=== PATIENT | male | born 1935 | race Caucasian/White ===

== ENCOUNTER 2017-04-15 13:58 | Inpatient (IN) | payer MEDICARE, BC ==
--- NOTE | ~2017-04-15 | DS ---
Unit #: [id number] #: [id number] Patient: ROSELINE PADILLA [id number] [address] [address] [id number] I MR#: [id number] NAME: ROSELINE PADILLA ROOM: 217 Age: 81 Sex: M Admission Date: 04/15/2017 : 1935 Discharge Date: 04/20/2017 Attending Physician: Robb Cohn M.D. Primary Care Physician: Dillon Lucas M.D. DISCHARGE SUMMARY PRINCIPAL DIAGNOSES 1. Toxic metabolic encephalopathy, now resolved. 2. Traumatic hemarthrosis of left knee after fall. 3. Acute urinary retention, now maintained on Flomax. 4. Chronic kidney disease stage 4, with baseline creatinine of approximately 2.4. 5. Khzza-jo-vhfjlzf physical deconditioning. 6. Chronic systolic congestive heart failure with ejection fraction of 30%-35%. No acute exacerbation. 7. Reactive leukocytosis. 8. Coronary artery disease. 9. Newly diagnosed diabetes mellitus type 2 with hemoglobin A1c of 8.0. 10. Severe aortic regurgitation. 11. Hypothyroidism. 12. Hyperlipidemia. CONSULTANTS Dr. Landeros, neurology. Dr. Tai, nephrology. DIAGNOSTIC DATA IMAGING: Chest x-ray on 04/15/2017 with atelectasis in the bases. Trace bilateral pleural effusions noted. X-ray of left ankle on 04/15/2017 with osteopenia. No acute findings. X-ray of left tibia and fibula on 04/15/2017 with osteopenia and atherosclerotic disease and osteoarthritis. Again, no acute fracture. X-ray of left knee on 04/15/2017 with osteoarthritis and osteopenia, atherosclerotic disease noted. There are curvilinear tendencies in the medial femoral condyle which may reflect hairline fracture. CT of the left lower extremity without contrast on 04/16/2017 with a small complex knee effusion, suggestive of hemarthrosis. No evidence of fracture. Mild to moderate tricompartment osteoarthritis noted. CT of the head without contrast on 04/15/2017 without any acute findings. There is moderate chronic ischemic changes in the deep white matter bilaterally, mild generalized cerebral cortical atrophy. X-ray of the left hip on 04/15/2017 with bilateral hip osteoarthritis. No fracture. Unit #: [id number] #: [id number] Patient: ROSELINE PADILLA MRA of the neck without contrast on 04/16/2017 with no flow limiting stenosis. Left vertebral artery is hypoplastic. MRI of the brain without contrast on 04/16/2017 with scattered multiple hyperintense T2 signal lesions in the brain, particularly in the supratentorial white matter and in the fritz. These are suggestive of microvascular ischemic change. No other acute findings. CLINICAL HISTORY/HOSPITAL COURSE Mr. Padilla is an 81-year-old male who presented to the emergency department with left-sided weakness after a fall at home. He was also confused. Please refer to history and physical for further details. He was subsequently brought to the emergency department for evaluation. The patient underwent multiple imaging studies of the left leg which did not reveal any fracture, though the patient did have a left knee hemarthrosis. He was also found to be confused and was subsequently admitted to the hospital for evaluation. Neurology was consulted, given the patient's confusion. MRA of the neck and MRI of the brain were done and revealed chronic vascular disease, but no other acute findings consistent with stroke. Given that he did have some significant atherosclerosis, the patient has been changed from aspirin to Plavix, given his high risk for stroke. He has tolerated Plavix therapy well. However, it is felt that his confusion was just likely a toxic metabolic phenomenon after the fall that has resolved. However, I will note during hospitalization the patient was taken off telemetry at one point and moved to medical/surgical and did become a little more confused at that time. I suspect he has a little bit of underlying memory loss given a little bit of agitation in conjunction with the move. This can be followed up as an outpatient. In regard to the patient's hemarthrosis of the knee, this improved with just supportive care during hospitalization. The patient was seen by physical therapy, who suggested inpatient subacute rehab, which we are currently in the process of arranging. The patient does have significant underlying chronic kidney disease. He was actually at his prepress proofer's office when he had these complaints and was sent to the emergency room. The patient was seen in consultation, but his renal function has remained at his baseline. He did have some significant urinary retention, for which he was placed on Flomax and Sexton catheter was placed for a short period. However, he has been able to urinate after Sexton catheter was removed. The patient will be discharged to rehab later today. Please note, the patient was also found to be hyperglycemic and hemoglobin A1c was elevated at 8. He has been started on Januvia and has been consulted regarding diabetic diet and on the day of discharge sugars are now running in the 150s or so. This can be followed up by his primary care physician after discharge. The patient was also found to be mildly anemic and this is a combination of both iron deficiency and his chronic kidney disease. He has been placed on iron supplementation. Hemoglobin on discharge is stable at 9.7. DISCHARGE CONDITION Unit #: [id number] #: [id number] Patient: ROSELINE PADILLA Stable. DISPOSITION Discharge to rehab. DISCHARGE MEDICATIONS 1. Flomax 0.4 mg at bedtime. 2. Januvia 25 mg daily. 3. Coreg 25 mg b.i.d. 4. Colace 100 mg daily. 5. Lasix 40 mg b.i.d. 6. Lipitor 20 mg at bedtime. 7. Hydralazine 25 mg b.i.d. 8. Ferrous gluconate 324 mg daily. 9. Plavix 75 mg daily. 10. Potassium chloride ER 10 mEq b.i.d. 11. Levothyroxine 25 mcg p.o. daily. 12. Imdur ER 60 mg daily. 13. Nitroglycerin 0.4 mg sublingual q.5 minutes p.r.n. chest pain. 14. Ergocalciferol 50,000 units p.o. weekly. DISCHARGE INSTRUCTIONS 1. The patient was instructed to follow a heart healthy, constant carb diet. He will obtain Accu-Cheks morning and evening. If these are stable throughout the rehab stay, perhaps they can be discontinued. 2. He can increase his activity as tolerated under the care of physical therapy and occupational therapy. FOLLOWUP 1. The patient will follow up with Dr. Dillon Lucas upon discharge from rehab. 2. The patient has a follow-up appointment with Dr. Meeks, his primary prepress proofer, which he will keep as previously scheduled. 3. Upon followup with his primary care physician, he will need to have arranged glucometer, test strips and lancets. I will also note the patient's Flomax, Januvia, ferrous gluconate and Plavix are all new medications and they will require prescription upon discharge from rehab. Dictated by... Ashley Harrington M.D. VAMSI/gaston TD: 04/20/2017 08:40 JOB #: [id number] Unit #: [id number] #: [id number] Patient: ROSELINE PADILLA DISCHARGE SUMMARY Page 1 of 1 X Ashley Harrington MD X DISCHARGE SUMMARY
--- NOTE | ~2017-04-15 | A ---
[facility] Nutrition Therapy DATE: 04/17/17 Patient: ROSELINE PADILLA Physician: HO Address: [address] Room/Bed: [address] [place] [address], Zip: [place] [address] Admit Date: 04/15/17 Date of : 35 Height: 5 5 Weight: 105 47.7 NUTRITIONAL ASSESSMENT: REASON: Low BMI 81 yo male admitted for left sided weakness PMH: CKD, HTN, HLD, CHF, hypothyroid, VT, hernia repair, DM Anthropometrics: Ht: 5'5" Wt: 47.7 kg BMI: 17.5 IBW: 61.8 kg, 77% IBW Labs: Cl- 98 Gluc 133 BUN 60 Creat 2.8 Accuchecks 134-251 HgbA1C 8.0 GFR 20.2 Meds: furosmide, novolog, synthroid, NaCl I/O & Bowel function: 720/1036, last BM 04/17 Skin Integrity: Bruise BUE Small scab to right ear lobe Redness to coccyx Edema: 1+ left knee Estimated Nutrition Needs: Increased d/t low body weight Diet: 2 gram Na+/ 1800 cc fluid restriction Assessment: Chart reviewed, events noted. RD spoke with the pt and his three family members at bedside. Pt was in and out of sleep; therefore, family provided most of the pt's nutritional history. Pt's family reports that the pt was losing weight gradually over several months, and has actually gained ~4# recently. Pt family has been going to eat with him and encourage PO intake during meal times, and also providing him with Boost shakes. Pt's family also reports that he has consumed 100% of meals over the past [address] verified this with empty tray in room. RD provided high protein/ high calorie diet education taking the pt's fluid restriction and 2 gram Na+ restriction into consideration. RD suggested Glucerna supplements due to the pt's elevated HgbA1C and accuchecks. Pt's family was apparently unaware that the pt was diabetic, however, they are aware that it runs in the family. RD discussed this with the pt's RN, suggesting that this be clarified with the pt and his family. Pt's family thinks he will do well with Magic Cup and glucerna supplements. RD will order. Dx: Underweight RT advanced age, recent illness AEB BMI 17.5, 77% IBW. [facility] Nutrition Therapy DATE: 04/17/17 Patient: ROSELINE RANDY Physician: HO Address: [address] [place] [address] Room/Bed: 311-01 [facility], Zip: [place] [address] Admit Date: 04/15/17 Date of : 35 Height: 5 5 Weight: 105 47.7 Intervention: 1. Continue diet as ordered 2. Glucerna once daily 3. Magic Cup TID Monitoring, Evaluation and Goals: 1. Oral intake; tolerate >50% of meals and supplements 2. Improve labs; glucose, BUN, creat, electrolytes 3. Weight; prevent weight loss, promote gradual weight gain towards IBW 4. Skin; prevent breakdown Recommendations: 1. Continue diet as ordered with fluid restriction per MD. 2. Magic Cup TID with meals and Glucerna once daily for supplemental nutrition (both chocolate). 3. Appreciate staff and family encouraging adequate nutritional intake as needed. Pt is at mild-moderate nutritional risk. Respectfully, BRIAN BARNES, RD, LD [facility] cc: client file
--- NOTE | ~2017-04-15 | CR252 ---
[facility] A Service of [facility] RADIOLOGY TEXT RESULTS PATIENT: ROSELINE PADILLA LOCATION: [facility] 311-01 : 35 UNIT #: [id number] AGE: [address]: Mary Van MD SEX: M ORDER DR: [id number] [facility] [address] [place], [place] [address] [id number] I MR#: [id number] Acc #: [id number] NAME: ROSELINE PADILLA : 1935 SEX: M STUDY DATE/TIME: 04/15/2017 15:44 UNIT: CED ROOM: 23903 STUDY DESCRIPTION: CR Tibia and Fibula 2 Views Lt Attending Physician: aMry Van M.D. Ordering Physician: Noemí Castelan M.D. Primary Care Physician: Dillon Lucas M.D. MEDICAL IMAGING REPORT This report is preliminary unless electronic signature is present EXAM Left tib-fib, 04/15. INDICATIONS Lower leg pain after fall yesterday. FINDINGS AP and lateral views of the tibia and fibula were obtained. Patient is osteopenic. There is osteoarthritis in the knee. Scattered arterial calcifications noted in the soft tissues. No acute fractures are identified. IMPRESSION Osteopenia with atherosclerotic disease and osteoarthritis. No acute fracture. Dictated by... Ag Swanson Jr., M.D. THIS IS AN ELECTRONICALLY VERIFIED REPORT Ag Swanson Jr., M.D. at 04/16/2017 7:10 AM GLADYS/jose TD: 04/15/2017 20:48 JOB #: [id number] MEDICAL IMAGING REPORT Page 1 of 1 COPY
--- NOTE | ~2017-04-15 | CO ---
Unit #: [id number] #: [id number] Patient: ROSELINE PADILLA [id number] [facility] [address]. [place], [place] [address] [id number] I MR#: [id number] NAME: ROSELINE PADILLA ROOM: 311 Age: 81 Sex: M Admission Date: 04/15/2017 : 1935 Attending Physician: Robb Cohn M.D. Primary Care Physician: Dillon Lucas M.D. Consultation Date: 04/16/2017 CONSULTATION REPORT CONSULTING PHYSICIAN Dr. Mray Van. REASON FOR CONSULT Left-sided weakness. PATIENT IDENTIFICATION This is an 81-year-old ambidextrous male evaluated in room 311 at [facility]. SOURCE OF INFORMATION Obtained from the patient as well as the medical record. HISTORY OF PRESENT ILLNESS This is a very pleasant 81-year-old ambidextrous male with a past medical history of chronic kidney disease stage 4 per nephrology, hypertension, hyperlipidemia, CHF with unknown ejection fraction, hypothyroidism who presents to [facility] for evaluation of left-sided weakness. According to the medical record, the patient had some left-sided weakness on Thursday that resolved and then returned, has been persistent for the last couple of days. The patient is currently alert and oriented, but he is not the best historian. I am uncertain of how reliable he is as he cannot answer all questions with complete certainty but he states that he feels as though the symptoms have been persistent since Thursday. He apparently fell on Thursday or Thursday. He has been complaining of pain in his left knee, but he cannot tell me if the pain was present before or after the fall and before or after the weakness. He cannot tell me if the weakness presented after the fall or before the fall, so essentially I am uncertain as what came first. He apparently at some point had complained of possibly some arm weakness but he denies that. He complained specifically of leg weakness. Apparently, he had some confusion per the medical record according to family and had been complaining of some pain. The patient admits that he did feel confused this week, though he is currently oriented x3. He denies any dizziness or vertigo, any speech or swallowing difficulty. He denies any vision changes. He has no cranial nerve findings on exam. He has no ataxia. His left lower extremity is weak; however, whenever I go to lift his leg, as he is unable to lift his leg off the bed himself, he complains of severe pain in his knee. His knee is swollen compared to the right and there is some warmth there. He does not complain of pain with palpation of his knee, but he complains of severe pain in his knee when I lift his leg. I am unable to elicit any reflexes. Again, his upper extremities are equal in strength and intact. He has no cranial nerve findings or facial weakness on exam. He can name and identify and follow commands. Unit #: [id number] #: [id number] Patient: ROSELINE PADILLA He has no right/left confusion or finger agnosia. He had a head CT done in the ER without contrast on April 15, 2017 that is negative for any acute findings. There is moderate chronic ischemic changes in the deep white matter bilaterally and mild generalized cerebral cortical atrophy. Neurology is asked to further evaluate. Of note, he did have x-rays of the tibia and fibula, left knee, ankle, and hip. Osteoarthritis and osteopenia is noted, small joint effusion noted. Per radiology report on the AP view, curvilinear lucencies in the medial femoral condyle could reflect hairline fractures with followup CT recommended for further evaluation. He denies any exacerbating or alleviating factors otherwise, but he is a poor historian regarding his current illness. PAST MEDICAL HISTORY 1. Admission to [facility] two weeks ago for congestive heart failure. I do not have records for that. His ejection fraction is unknown. He was started on Lasix and potassium at that time and is apparently being followed by Dr. Candelario. 2. Chronic kidney disease stage 4 per nephrology, who saw the patient on this admission. They state his chronic kidney disease is essentially stable and unchanged. 3. Hypertension. 4. Hyperlipidemia. 5. Hypothyroidism. 6. Myocardial infarction in the past. The patient apparently refused cardiac catheterization. 7. Hernia repair. FAMILY HISTORY Noncontributory to the presenting condition, especially given his age of 81. SOCIAL HISTORY The patient denies tobacco use, alcohol use, or illicit drug use. He says he uses a cane to ambulate at baseline. He has significant family support. They take him to his doctor appointments and check on him daily. His nephew, Chirag Padilla, is bhgrt-wa-sqbeddeh. He is a DNR. ALLERGIES No known drug allergies. HOME MEDICATIONS 1. Levothyroxine. 2. Potassium. 3. Furosemide. 4. Aspirin. He does take a full dose daily. 5. Lipitor. 6. Coreg. 7. Hydralazine. 8. Ergocalciferol. 9. Isosorbide mononitrate. 10. Nitroglycerin p.r.n. REVIEW OF SYSTEMS A 14-point review of systems was attempted. Pertinent positives were as discussed above, otherwise negative. PHYSICAL EXAMINATION VITAL SIGNS: Temperature 98. He has been afebrile this admission. He Unit #: [id number] #: [id number] Patient: ROSELINE PADILLA did have one elevated temperature of 99.2 this morning. Pulse 76, respirations 20, blood pressure 142/63. His blood pressure on the ER on arrival was 121/75. Oxygen saturation 99% on room air. Height 5 feet 5 inches, weight 105 pounds, BMI 17. NEUROLOGIC: The patient is awake. He is alert. He is pleasant, but he is a poor historian. He is oriented to person, place, and time. He did have some difficulty with the year but was able to correct himself without assistance to 2016 very quickly. He was able to tell me it was April without difficulty; however, he had some difficulty with the day of the week. He stated that he believed it was either Thursday or Thursday. He has no speech difficulty. He can name, identify and follow simple commands. No right/left confusion. No finger agnosia. He is not aphasic or dysarthric. No apraxia. CRANIAL NERVES: He demonstrates full rojas of vision on exam. His eyes are conjugate without ptosis or nystagmus. Extraocular movements are intact. Sensation of the face and scalp is intact. Strength of muscles of facial expression are intact. Hearing is intact to finger rub as well as conversation. Tongue is midline. Unable to fully visualize uvula and palate with repeated exam. Head turning is unremarkable. Shoulder shrug is unremarkable. Neck is supple. MOTOR: In his upper extremities, he demonstrates decreased bulk and normal tone. His strength in his upper extremities are equal and intact. He is essentially 5/5 to 5-/5 but no focal findings. In his lower extremities, his right lower extremity is intact 5 to 5-/5. In the left lower extremity, however, he is unable to lift against gravity. He does have muscle contraction and he can wiggle his toes, but he is unable to lift proximally or distally off the bed. When I attempt to lift his leg with passive range of motion, he complains of severe pain in his left knee. He does have swelling of his left knee and it appears to be warm compared to the right. I am unable to elicit any reflexes. Toes are equivocal. SENSORY: Intact. COORDINATION: Unremarkable, unable to assess in the left lower extremity. DIAGNOSTIC STUDIES LABORATORY: Hemoglobin A1c 8. Troponin 0.05. Sodium 135, potassium 3.9, chloride 97, CO2 of 29, glucose 115, BUN 53, creatinine 2.9, estimated GFR 19.4, calcium 9.2. AST 14, ALT 10, alkaline phosphatase 70, total protein 7.3, albumin 3.5. Phosphorous 3.7, magnesium 2.2. CK 29. White blood cell count 12, hemoglobin 10.5, hematocrit 31.7, platelet count 231,000. Initial troponin was less than 0.05, repeat troponin was 0.05. BNP 320. B12 of 481. Folate 7.6. TSH 3.37. Urinalysis: One plus protein, negative for bacteria. Initial white count 10.4. IMAGING: CT of the head: Please see above. Other imaging has been reviewed and is as per chart. He had a chest x-ray that shows mild infiltrate or atelectasis in the bases with trace bilateral effusions per radiology report. IMPRESSION Left lower extremity weakness and confusion: Rule out GARY lesion. Question is did his pain occur before the weakness or after the weakness. He certainly has had persistent weakness, so it would not be consistent with a transient ischemic attack. Will request a MRI of the brain without contrast, MRA of the head and neck to further evaluate. If positive for anything, we will further evaluate. If negative, we will observe. He does not exhibit any cranial nerve findings at this time. He certainly Unit #: [id number] #: [id number] Patient: ROSELINE PADILLA has left lower extremity weakness, but I am unable to determine if it is more pain related. He is certainly weak, but he exhibits significant pain with examination. He is unable to tell me if the weakness is more related to pain or not. Therefore, a MRI of the brain is certainly warranted. Will continue his home aspirin and Lipitor and further recommendations will be made pending workup and further clinical course. He certainly has risk factors. He is not a candidate for acute intervention and his symptoms have been going on for a few days at this point. Will follow along with you closely. Will discuss with Dr. Landeros for further recommendations as well as pending workup and further clinical course. We will follow along with you. We thank you very much for allowing us to assist in the care of this patient. Dictated by... Madonna Chairez A.P.R.N. for Carlos Barrera/jose TD: 04/16/2017 11:23 JOB #: [id number] CONSULTATION REPORT Page 1 of 1 X Madonna Chairez FUNCTIONAL CONSULTANT X CONSULTATION REPORT
--- NOTE | ~2017-04-15 | CT71 ---
[facility] A Service of [facility] RADIOLOGY TEXT RESULTS PATIENT: ROSELINE PADLILA LOCATION: [facility] 311- : 35 UNIT #: [id number] AGE: [address]: Robb Cohn MD SEX: M ORDER DR: [id number] [facility] [address] [facility]. [place], [place] [address] [id number] I MR#: [id number] Acc #: [id number] NAME: ROSELINE PADILLA : 1935 SEX: M STUDY DATE/TIME: 04/15/2017 16:31 UNIT: CEDOF ROOM: 94550 STUDY DESCRIPTION: CT Head Wo Contrast Attending Physician: Mary Van M.D. Ordering Physician: Noemí Castelan M.D. Primary Care Physician: Dillon Lucas M.D. MEDICAL IMAGING REPORT This report is preliminary unless electronic signature is present EXAM CT brain without contrast HISTORY Left side weakness for 2 days. Left side weakness for [address] exam was performed with one or more of the following radiation dose reduction techniques: automatic exposure control, adjustment of mA and/or kV according to patient size, and iterative reconstruction. FINDINGS CT brain without contrast demonstrates no intracranial hemorrhage, mass or edema. No midline shift or ventricular dilatation. Moderate chronic ischemic changes in the deep white matter bilaterally and mild generalized cerebral cortical atrophy. IMPRESSION No acute findings. Dictated by... Matthew Gallagher M.D. THIS IS AN ELECTRONICALLY VERIFIED REPORT Matthew Gallagher M.D. at 04/16/2017 1:59 PM DFL/pcl TD: 04/15/2017 21:57 JOB #: [id number] MEDICAL IMAGING REPORT [facility] A Service [facility] RADIOLOGY TEXT RESULTS PATIENT: ROSELINE PADILLA LOCATION: [facility] 311- : 35 UNIT #: [id number] AGE: [address]: Robb Cohn MD SEX: M ORDER DR: Page 1 of 1 COPY
--- NOTE | ~2017-04-15 | MR134 ---
[facility] A Service of [facility] & [facility] RADIOLOGY TEXT RESULTS PATIENT: ROSELINE PADILLA LOCATION: C2A 217-01 : 35 UNIT #: [id number] AGE: [address]: Robb Cohn MD SEX: M ORDER DR: [id number] [facility] [address] [employer], [place] [address] [id number] I MR#: [id number] Acc #: [id number] NAME: ROSELINE PADILLA : 1935 SEX: M STUDY DATE/TIME: 04/16/2017 14:21 UNIT: C3A PCU ROOM: [facility] STUDY DESCRIPTION: MR MRA Neck Wo Contrast Attending Physician: Robb Cohn M.D. Ordering Physician: Sylvain Landeros M.D. Primary Care Physician: Dillon Lucas M.D. MRI CENTER REPORT This report is preliminary unless electronic signature is present. EXAM MR angiogram of the neck without contrast, dated 04/16/2017. COMPARISON MR angiogram brain dated 04/16/2017. MRI brain is yet to be obtained. HISTORY Left-sided weakness since Thursday04/15/2017 at 1400 hours. Patient fell that day at home with possible injury to the left leg. Patient became dizzy and confused after fall. FINDINGS Source and 3-D reconstruction MIP images of the neck arteries were obtained without contrast. The visualized bilateral common, internal and external carotid arteries demonstrate expected flow course and caliber without any hemodynamically flow-limiting significant stenosis and bilateral internal carotid artery bulbs per NASCET criteria. Bilateral external and common carotid arteries are grossly unremarkable. The left vertebral artery either arises directly from the arch between the left common and left subclavian artery or from the left subclavian artery immediately after its origin from the arch. Motion artifact in this region limits evaluation. Left vertebral artery is hypoplastic, and it has a slightly longer course before it extends to the cervical transverse foramen on the left. Bilateral vertebral arteries demonstrate expected caliber without any superimposed stenosis. The left vertebral artery appears to terminate in the left PICA intracranially without any significant contribution to the basilar arterial flow. No dissection, aneurysm or AVM in the major neck arteries. IMPRESSION 1. No hemodynamically flow-limiting significant stenosis and bilateral internal carotid artery bulbs per NASCET criteria. 2. The left vertebral artery is hypoplastic and it appears to terminate STS. [facility] A Service of [facility] & [facility] RADIOLOGY TEXT RESULTS PATIENT: ROSELINE PADILLA LOCATION: A 217- : 35 UNIT #: [id number] AGE: [address]: Robb Cohn MD SEX: M ORDER DR: in the left PICA intracranially, without any significant contribution to the basilar arterial flow. Dictated by... Art Peralta M.D. THIS IS AN ELECTRONICALLY VERIFIED REPORT Art Peralta M.D. at 04/22/2017 11:32 AM CPR/jt TD: 04/16/2017 16:50 JOB #: [id number] MRI CENTER REPORT Page 1 of 1 COPY
--- NOTE | ~2017-04-15 | CT92 ---
[facility] A Service of [facility] & [facility] RADIOLOGY TEXT RESULTS PATIENT: ROSELINE APDILLA LOCATION: [facility] 311- : 35 UNIT #: [id number] AGE: [address]: Robb Cohn MD SEX: M ORDER DR: [id number] [facility] [address] [place], [place] [address] [id number] I MR#: [id number] Acc #: [id number] NAME: ROSELINE PADILLA : 1935 SEX: M STUDY DATE/TIME: 04/16/2017 7:49 [facility] ROOM: [facility] STUDY DESCRIPTION: CT Lower Ext Lt Wo Cont Attending Physician: Robb Cohn M.D. Ordering Physician: Mary Van M.D. Primary Care Physician: Dillon Lucas M.D. MEDICAL IMAGING REPORT This report is preliminary unless electronic signature is present EXAM CT left knee HISTORY 81-year-old male fell April 14. Complains of left knee pain. X-rays inconclusive for fracture. COMPARISON Left knee films 04/15/2017. FINDINGS Thin section axial images performed through the left knee with multiplanar reconstructed images reviewed at a workstation. This CT examination was performed with one or more of the following radiation dose reduction techniques: automatic exposure control, adjustment of mA and/or kV according to patient size, and iterative reconstruction. Exam demonstrates marked osteopenia. No convincing evidence of fracture. Small knee effusion. There is a questionable fluid-fluid level within the effusion which could indicate a hemarthrosis but again a distinct fracture line is not identified. There is gnfo-un-lvrututa tricompartment osteoarthritis with a small amount of chondrocalcinosis. No erosive change is identified. Prominent enthesopathic cyst noted within the tibial eminence. Small amount of fluid distends the GS bursa. IMPRESSION 1. Small complex knee effusion with a fluid-fluid level suggesting hemarthrosis. 2. No convincing evidence of fracture about the knee. Sensitivity diminished due to patient's severe osteopenia but clearly no distinct fracture line is seen. 3. Aavp-fs-nkaljdsg tricompartment osteoarthritis. [facility] A Service of [facility] & [facility] RADIOLOGY TEXT RESULTS PATIENT: ROSELINE PADILLA LOCATION: [facility] 311-01 : 35 UNIT #: [id number] AGE: [address]: Robb Cohn MD SEX: M ORDER DR: Dictated by... Carlos Barker M.D. THIS IS AN ELECTRONICALLY VERIFIED REPORT Carlos Barker M.D. at 04/17/2017 7:26 AM DEMI/lon TD: 04/16/2017 12:54 JOB #: [id number] MEDICAL IMAGING REPORT Page 1 of 1 COPY
--- NOTE | ~2017-04-15 | CR150 ---
[facility] A Service of [facility] & [facility] RADIOLOGY TEXT RESULTS PATIENT: ROSELINE PADILLA LOCATION: [facility] 311-01 : 35 UNIT #: [id number] AGE: [address]: Mary aVn MD SEX: M ORDER DR: [id number] [facility] [address] [place], [place] [address] [id number] I MR#: [id number] Acc #: [id number] NAME: ROSELINE PADILLA : 1935 SEX: M STUDY DATE/TIME: 04/15/2017 15:49 UNIT: CEDOF ROOM: [id number] STUDY DESCRIPTION: CR Hip Min 2 Views Lt Attending Physician: Mary Van M.D. Ordering Physician: Noemí Castelan M.D. Primary Care Physician: Dillon Lucas M.D. MEDICAL IMAGING REPORT This report is preliminary unless electronic signature is present EXAM Left hip and pelvis, 04/15 INDICATIONS Hip pain after fall yesterday. FINDINGS AP pelvis was obtained in addition to a frog-leg left hip. There is bilateral hip osteoarthritis with some mild spurring and joint space narrowing. No acute fractures are identified. IMPRESSION Bilateral hip osteoarthritis. No acute fracture. Dictated by... Ag Swanson Jr., M.D. THIS IS AN ELECTRONICALLY VERIFIED REPORT Ag Swanson Jr., M.D. at 04/16/2017 7:10 AM GLADYS/sinan TD: 04/15/2017 21:01 JOB #: [id number] MEDICAL IMAGING REPORT Page 1 of 1 COPY
--- NOTE | ~2017-04-15 | CO ---
Unit #: [id number] #: [id number] Patient: ROSELINE PADILLA [id number] [address] [place], [place] [address] [id number] I MR#: [id number] NAME: ROSELINE PADILLA ROOM: 311 Age: 81 Sex: M Admission Date: 04/15/2017 : 1935 Attending Physician: Robb Cohn M.D. Primary Care Physician: Dillon Lucas M.D. Consultation Date: 04/16/2017 CONSULTATION REPORT REASON FOR CONSULTATION Known chronic kidney disease. HISTORY OF PRESENT ILLNESS Ms. Padilla is a very pleasant 81-year-old gentleman who is a poor historian, who was admitted due to ongoing left-sided weakness, especially in his left leg. Patient was just recently discharged from [facility] for congestive heart failure issues. This discharge summary was reviewed. Patient was seeing my partners, Dr. Meeks and Dr. Medina there and looked to have fairly stable kidney function while there with creatinines running in the mid to high 2 range with diuresis. We were asked to follow here for his chronic kidney disease. Patient denies any chest discomfort or shortness of breath this morning while lying flat. He does have a Sexton catheter in place with nonbloody urine. There is no swelling issues. No nausea or vomiting reported. Admission creatinine was 3.1. Again he is a poor historian. PAST MEDICAL HISTORY Significant for congestive heart failure, systolic in nature, chronic kidney disease stage 4, hypertension, hyperlipidemia, hypothyroidism, previous [place]. PAST SURGICAL HISTORY Hernia repair. HOME MEDICATIONS Nitroglycerin p.r.n.; Imdur 60 mg a day; vitamin D 50,000 units weekly; hydralazine 25 mg twice a day; Coreg 25 mg twice a day; Lipitor 40 mg a day; aspirin daily; furosemide 40 mg twice a day; potassium 10 mEq twice a day; levothyroxine 25 mcg a day. ALLERGIES No known drug allergies. FAMILY HISTORY Unknown but likely noncontributory. SOCIAL HISTORY There is no history of active tobacco or alcohol abuse. No drug use. He is a DNR and has supportive family that checks in on him. REVIEW OF SYSTEMS A complete twelve point review of systems was attempted but again was made difficult secondary to his seemingly mild confusion. He denies any Unit #: [id number] #: [id number] Patient: ROSELINE PADILLA headaches or dizziness. No fevers or chills. No nosebleed or sore throat. No earache. No chest pain. No palpitations. No hemoptysis. No bright red blood per rectum or melena. No rashes. No itching. No flank pain. No night sweats or hot flashes. No intolerance to heat or cold. Denies any gross bleeding issues. Likely has lost weight with his recent diuresis. Unless otherwise indicated the review of systems was negative. PHYSICAL EXAMINATION VITAL SIGNS: Patient is afebrile. As of this morning temp is 98, pulse 76, respiratory rate 20, blood pressure 142/63. GENERAL: This is an 81-year-old male lying in bed in no acute distress. HEENT: Head is atraumatic and normocephalic. Eyes show pink conjunctivae with no scleral icterus. No nasal drainage or nosebleed. Oropharynx is moist and no thrush. NECK: Shows no rigidity. HEART: Regular rate and rhythm with soft murmur present. No gallop or rub appreciated. LUNGS: Clear anteriorly with no wheezing or rhonchi. Breathing is nonlabored. ABDOMEN: Soft, nontender. Bowel sounds are present. EXTREMITIES: No lower extremity cyanosis or pitting edema. SKIN: Dry without rashes. GENITOURINARY: Sexton catheter is in place with nonbloody urine. MUSCULOSKELETAL: No CVA tenderness to palpation. NEUROLOGIC: Patient has difficulty raising his left leg off the bed but is able to do so about an inch or so. LYMPHATIC: There is no neck or cervical lymphadenopathy. DIAGNOSTIC STUDIES LABS: Urine protein creatinine ratio was about 1 g. IMAGING STUDIES: Chest x-ray done yesterday afternoon did show some trace effusions. LABORATORY STUDIES: Hemoglobin A1c was 8. Troponin 0.05. Chemistry today - noteworthy for a potassium of 3.9, creatinine 2.9, phosphorus normal at 3.7, magnesium 2.2. White count 12,000, hemoglobin 10.5, platelet count 231. BNP on admission was 320. Urinalysis on admission showed 1+ protein and no blood. Admission creatinine was 3.1. No prior creatinines to compare here at [facility] but it looks like his creatinines while at [place] ran between the mid to high 2 range. ASSESSMENT AND PLAN 1. Acute on chronic kidney disease, stage 4. His admission creatinine of 3.1 is slightly above his baseline and is likely related to recent aggressive diuresis at [place] and higher doses of diuretics at home for his congestive heart failure. It is improved down to 2.9 today. Due to his congestive heart failure I do feel it is okay to resume his Lasix and will do so tonight. Certainly need to avoid any NSAIDs and IV contrasted studies while he is here at the hospital. 2. Congestive heart failure, which is systolic in nature. Patient looks fairly well compensated here this morning. Again we can continue his diuretic regimen and low salt diet. 3. Diabetes with proteinuria. 4. Left leg weakness with neurology seeing the patient and workup underway. 5. Anemia, which is mild in nature with no need for Procrit at this time. 6. Patient is noted to be a DNR. Unit #: [id number] #: [id number] Patient: ROSELINE PADILLA I would like to thank Dr. Van for this consult and the opportunity to participate in evaluation and care of Mr. Padilla. Dictated by... Mitch Tai Jr., MTeodoro. BHUMIKA/renee TD: 04/17/2017 06:13 JOB #: [id number] CONSULTATION REPORT Page 1 of 1 X Mitch Tai MD X CONSULTATION REPORT
--- NOTE | ~2017-04-15 | CR172 ---
[facility] A Service of [facility] & [facility] RADIOLOGY TEXT RESULTS PATIENT: ROSELINE PADILLA LOCATION: [facility] 311-01 : 35 UNIT #: [id number] AGE: [address]: Mary Van MD SEX: M ORDER DR: [id number] [facility] [address] [place], [place] [address] [id number] I MR#: [id number] Acc #: [id number] NAME: ROSELINE PADILLA : 1935 SEX: M STUDY DATE/TIME: 04/15/2017 15:47 UNIT: CEDOF ROOM: [id number] STUDY DESCRIPTION: CR Knee 3 Views Lt Attending Physician: Mary Van M.D. Ordering Physician: Noemí Castelan M.D. Primary Care Physician: Dillon Lucas M.D. MEDICAL IMAGING REPORT This report is preliminary unless electronic signature is present EXAM Left knee, 04/15 INDICATIONS Knee pain after fall yesterday. FINDINGS Three views of the left knee were obtained. Patient is osteopenic. Atherosclerotic calcifications are noted. There is tricompartmental osteoarthritis. There are some linear lucencies seen on the AP view involving the medial femoral condyle which could reflect nondisplaced fractures. A small joint effusion is present. Follow up with CT recommended. IMPRESSION Osteoarthritis and osteopenia with atherosclerotic disease. There is a small joint effusion. On the AP view, curvilinear lucencies in the medial femoral condyle could reflect hairline fractures. Follow up with a CT is recommended for further evaluation. Dictated by... Ag Swanson Jr., M.D. THIS IS AN ELECTRONICALLY VERIFIED REPORT Ag Swanson Jr., M.D. at 04/16/2017 7:10 AM GLADYS/sinan TD: 04/15/2017 20:59 JOB #: [id number] MEDICAL IMAGING REPORT Page 1 of 1 COPY
--- NOTE | ~2017-04-15 | EKG ---
PATIENT: ROSELINE PADILLA UNIT #: [id number] Ventricular Rate: 79 BPM Atrial Rate: 79 BPM P-R Interval: 166 ms QRS Duration: 84 ms Q-T Interval: 396 ms QTC Calculation(Bezet): 454 ms P [place]: 47 degrees Calculated R [place]: -41 degrees Calculated T [place]: 131 degrees Diagnosis Line: Normal sinus rhythm Diagnosis Line: Left axis deviation Diagnosis Line: Left ventricular hypertrophy with repolarization Diagnosis Line: abnormality Diagnosis Line: Anteroseptal infarct , age undetermined Diagnosis Line: Abnormal ECG Diagnosis Line: No previous ECGs available Diagnosis Line: Confirmed by MICHAEL ENRIQUEZ MD ([id number]) on Diagnosis Line: 04/17/2017 7:56:26 AM INTERPRETING MD: MINA HOLLINGSWORTH
--- NOTE | ~2017-04-15 | CR72 ---
[facility] A Service of [facility] & [facility] RADIOLOGY TEXT RESULTS PATIENT: ROSELINE PADILLA LOCATION: [facility] 311-01 : 35 UNIT #: [id number] AGE: [address]: Mary Van MD SEX: M ORDER DR: [id number] [facility] [address] [place], [place] [address] [id number] MR#: [id number] Acc #: [id number] NAME: ROSELINE PADILLA : 1935 SEX: M STUDY DATE/TIME: 04/15/2017 15:42 UNIT: BIRDIE ROOM: STUDY DESCRIPTION: CR Chest Single View Portable Attending Physician: Noemí Castelan M.D. Ordering Physician: Noemí Castelan M.D. Primary Care Physician: Dillon Lucas M.D. MEDICAL IMAGING REPORT This report is preliminary unless electronic signature is present EXAM Portable chest, 04/15 INDICATIONS Shortness of air that started yesterday. FINDINGS AP portable chest was obtained. No comparison. Cardiac and mediastinal contours are within normal limits. There is some mild infiltrate or atelectasis in the bases and there are trace pleural effusions. Lungs are otherwise clear. No pneumothorax. There is degenerative disease in both shoulders. IMPRESSION Mild infiltrate or atelectasis in the bases with trace bilateral effusions. Dictated by... Ag Swanson Jr., M.D. THIS IS AN ELECTRONICALLY VERIFIED REPORT Ag Swanson Jr., M.D. at 04/16/2017 7:10 AM GLADYS/sinan TD: 04/15/2017 20:34 JOB #: [id number] MEDICAL IMAGING REPORT Page 1 of 1 COPY
--- NOTE | ~2017-04-15 | HP ---
Unit #: [id number] #: [id number] Patient: ROSELINE PADILLA [id number] [address] [place], [place] [address] [id number] I MR#: [id number] NAME: ROSELINE PADILLA ROOM: 38208 Age: 81 Sex: M Admission Date: 04/15/2017 : 1935 Attending Physician: Mary Van M.D. Primary Care Physician: Dillon Lucas M.D. HISTORY AND PHYSICAL CHIEF COMPLAINT Left-sided weakness since Thursday. HISTORY OF PRESENT ILLNESS The patient is an 81-year-old male with a past medical history of chronic kidney disease, hypertension, hyperlipidemia, CHF, and hypothyroidism, who presented to the emergency department for evaluation of the above. History is obtained from chart review and discussion with ER staff, as well as from the patient and his nephew, Chirag Padilla. The patient was apparently in his usual state of health until the evening of April 11. He was noted to be somewhat confused and had left-sided weakness. He also complained of having difficulty moving his left arm and leg. He states that he could only move his leg if he "lifted it." He also felt somewhat off balance. The next day the symptoms completely resolved. The symptoms then returned yesterday. The timeline is somewhat unclear. Today, the family was taking him to an appointment with his mathematics lecturer and noticed that he seemed to be weak on the left side. He was complaining of pain intermittently. He seemed to be somewhat confused, and so they brought him to the emergency department. Upon arrival in the emergency department, initial temperature was 98.1, pulse 78, respirations 16, blood pressure 121/75, and oxygen saturation was 99% on room air. Multiple imaging studies were done including a CT of the head that was negative. Left knee x-ray showed a possible hairline fracture involving the medial femoral condyle. A CT was recommended. Laboratory notable for creatinine of 3.1 with no baseline for comparison. Blood sugar was 224. The patient denies any history of diabetes. He is being admitted to [facility] for evaluation and further treatment. PAST MEDICAL HISTORY 1. Admission to [facility] two weeks ago for congestive heart failure (no records). The patient was started on Lasix and potassium at that time. 2. Congestive heart failure with unknown ejection fraction, followed by Dr. Candelario. The patient saw his emery wheel worker last week in followup. 3. Hypertension. 4. Hyperlipidemia. 5. Hypothyroidism. 6. Chronic kidney disease unknown stage, followed by Dr. Meeks. 7. Myocardial infarction. The patient refused cardiac catheterization. Unit #: [id number] #: [id number] Patient: ROSELINE PADILLA PAST SURGICAL HISTORY Hernia repair. SOCIAL HISTORY The patient lives alone. There is no tobacco or alcohol use. He has a cane and a walker. Family checks on him frequently. His nephew, Chirag Padilla, is his closest living relative and is his power of anime designer. His code status is a Do Not Resuscitate. ALLERGIES No known allergies. HOME MEDICATIONS 1. Levothyroxine 25 mcg daily. 2. Potassium 10 mEq twice daily. 3. Furosemide 40 mg twice daily. 4. Aspirin 325 mg daily. 5. Lipitor 40 mg daily. 6. Coreg 25 mg twice daily. 7. Hydralazine 25 mg twice daily. 8. Ergocalciferol 50,000 units weekly. 9. Isosorbide mononitrate 60 mg daily. 10. Nitroglycerin 0.4 mg sublingual p.r.n. REVIEW OF SYSTEMS A complete review of systems is negative except as indicated in the History of Present Illness. PHYSICAL EXAMINATION VITAL SIGNS: Temperature is 98.1, pulse 78, respirations 16, blood pressure 121/75, and oxygen saturation is 99% on room air. GENERAL: Patient is a male who is awake, alert, and in no acute distress. HEENT: Head is atraumatic. Mucous membranes are moist. NECK: Supple. Trachea is midline. CARDIOVASCULAR: Regular rate and rhythm. LUNGS: Decreased breath sounds at the bases. Breathing is not labored with conversation. ABDOMEN: Soft and nontender with bowel sounds present in all four quadrants. EXTREMITIES: Nontender. Specifically, the left lower extremity is nontender in the region of the distal femur and knee. There is no pedal edema. NEUROLOGIC: Patient is awake and alert. He is oriented x3. There is no facial asymmetry. Tongue is midline. There is no appreciable pronator drift. Leather Production Worker strength is symmetric. Gait was not assessed. PSYCHIATRIC: Mood and affect are normal. Patient is cooperative. SKIN: Skin of examined areas is warm and dry. DIAGNOSTIC STUDIES LABORATORY: Comprehensive metabolic panel notable for glucose of 224 and BUN and creatinine 53 and 3.1, respectively. Complete blood count notable for hemoglobin and hematocrit of 10.7 and 32.7, respectively. Troponin is less than 0.05. Urinalysis notable for 1+ protein. IMAGING: Chest x-ray shows bibasilar atelectasis versus infiltrate with trace bilateral effusions. CT of the head shows nothing acute. Left hip x-ray shows nothing acute. Left knee x-ray shows a small effusion with Unit #: [id number] #: [id number] Patient: ROSELINE PADILLA possible hairline fracture involving the medial femoral condyle. Left tibia-fibula shows nothing acute. Left ankle x-ray nothing acute. CARDIOLOGY: EKG shows normal sinus rhythm with a rate of 79 beats per minute. ASSESSMENT The patient is an 81-year-old male with: 1. Altered mental status. 2. Left-sided weakness. The weakness has been intermittent in nature, first appearing on April 11 then resolving completely, then reappearing possibly last night. A CT of the head is negative. 3. Possible fracture involving the left femoral condyle. 4. Chronic kidney disease versus acute on chronic kidney disease. The patient's creatinine is 3.1 with no baseline for comparison. He is followed by Dr. Meeks. He is on Furosemide which could be contributing as well. 5. Hypertension. 6. Hyperlipidemia. 7. Congestive heart failure with unknown ejection fraction. 8. History of myocardial infarction. The patient refused cardiac catheterization. 9. Hyperglycemia with no history of diabetes. 10. Hypothyroidism. PLAN 1. Admit for observation to intermediate level. 2. Two gram sodium, 1800 mL fluid restricted, heart-healthy, consistent carbohydrate diet if passes bedside swallow. 3. TSH, B12, and folate. 4. Neuro checks. 5. Bedrest. 6. Fall precautions. 7. MRI of the brain without contrast for further evaluation of left-sided weakness. 8. Stroke protocol per Neurology. 9. Consult Neurology regarding left-sided weakness. 10. CT of the left knee without contrast for further evaluation of possible fracture noted on plain films. 11. Check BNP. 12. Serial cardiac enzymes. 13. Strict I/Os. 14. Daily weights. 15. Get records from [place]. 16. Low-dose sliding scale insulin with Accu-Cheks. 17. Hemoglobin A1c. 18. Consult Dr. Meeks regarding chronic kidney disease versus acute on chronic kidney disease. 19. Check CPK. 20. Bladder scan and check postvoid residual. 21. Hold Lasix pending further workup. 22. Regarding code status, the patient is a Do Not Resuscitate. 23. Additional workup and consultants based on above. 1. Dictated by Mary Van M.D. Unit #: [id number] #: [id number] Patient: ROSELINE PADILLA RAYMUNDO/paula TD: 04/15/2017 22:14 JOB #: [id number] HISTORY AND PHYSICAL Page 1 of 1 X Mary Van MD X HISTORY AND PHYSICAL
--- NOTE | ~2017-04-15 | MR18 ---
[facility] A Service of [facility] & [facility] RADIOLOGY TEXT RESULTS PATIENT: ROSELINE PADILLA LOCATION: A 217-01 : 35 UNIT #: [id number] AGE: [address]: Robb Cohn MD SEX: M ORDER DR: [id number] [facility] [address] [place], [place] [address] [id number] I MR#: [id number] #: [id number] NAME: ROSELINE PADILLA : 1935 SEX: M STUDY DATE/TIME: 04/16/2017 14:21 UNIT: C3A PCU ROOM: [facility] STUDY DESCRIPTION: MR Brain Wo Contrast Attending Physician: Robb Cohn M.D. Ordering Physician: Mary Van M.D. Primary Care Physician: Dillon Lucas M.D. MRI CENTER REPORT This report is preliminary unless electronic signature is present. EXAM MRI of the brain without contrast dated 04/16/2017. COMPARISON MR angiogram head without contrast dated 04/16/2017. HISTORY Left-sided weakness since Thursday on 04/15/2017 1400 hours. Patient fell that day at home with possible injury to the left leg. Patient became dizzy and confused after fall. FINDINGS Multisequence multiplanar imaging of the brain was obtained without contrast. No acute stroke, space-occupying intracranial mass, mass effect, midline shift or hydrocephalus. Scattered multiple patchy hyperintense T2-signal lesions are noted in the periventricular and subcortical white matter. To a lesser degree it is noted in the fritz with suspicious involvement of the right cerebellar hemisphere and bilateral basal ganglia. Diffuse age-appropriate parenchymal volume loss is seen. No acute intracranial abnormality. Thick slices through the sella with the pituitary gland, pineal region do not demonstrate any significant abnormality. Degenerative changes are in the cervical spine particularly at C4-5 and C5-6 based on sagittal T1 brain sequence. It is incompletely characterized. S-shaped nasal septal deviation is noted with relatively well aerated paranasal sinuses. Orbits with the ocular structures are unremarkable. Minimal bilateral mastoid mucosal thickening is seen. IMPRESSION 1. Scattered multiple hyperintense T2-signal lesions are noted in the brain particularly in the supratentorial white matter and in the fritz. These are suggestive of moderate chronic microvascular ischemic change, migraine or old lacunar infarcts based on age and STS. [facility] A Service of [facility] & [facility] RADIOLOGY TEXT RESULTS PATIENT: ROSELINE PADILLA LOCATION: [place] [address] : 35 UNIT #: [id number] AGE: [address]: Robb Cohn MD SEX: M ORDER DR: statistics. 2. No acute intracranial abnormality like acute stroke, hydrocephalus, acute hemorrhage or midline shift. Dictated by... Art Peralta M.D. THIS IS AN ELECTRONICALLY VERIFIED REPORT Art Peralta M.D. at 04/22/2017 11:32 AM PHILLIP/margie TD: 04/16/2017 17:36 JOB #: [id number] MRI CENTER REPORT Page 1 of 1 COPY
--- NOTE | ~2017-04-15 | CR20 ---
[facility] A Service of [facility] RADIOLOGY TEXT RESULTS PATIENT: ROSELINE PADILLA LOCATION: [facility] 311-01 : 35 UNIT #: [id number] AGE: [address]: Mary Van MD SEX: M ORDER DR: [id number] [facility] [address] [place], [place] [address] [id number] MR#: [id number] Acc #: [id number] NAME: ROSELINE PADILLA : 1935 SEX: M STUDY DATE/TIME: 04/15/2017 15:43 UNIT: CEDOF ROOM: [id number] STUDY DESCRIPTION: CR Ankle Min 3 Views Lt Attending Physician: Mary Van M.D. Ordering Physician: Noemí Castelan M.D. Primary Care Physician: Dillon Lucas M.D. MEDICAL IMAGING REPORT This report is preliminary unless electronic signature is present EXAM Left ankle 04/15 INDICATIONS Left ankle pain that started yesterday after fall. FINDINGS 3 views of the left ankle were obtained. Patient is osteopenic. Arterial calcifications present in the soft tissues. Plantar calcaneal spur is noted. There is a small spur along the superior margin of the anterior talus. No acute fracture or malalignment is seen. 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 No acute findings in the interval. Dictated by... Ag Swanson Jr., M.D. THIS IS AN ELECTRONICALLY VERIFIED REPORT Ag Swanson Jr., M.D. at 04/16/2017 7:10 AM GLADYS/troy TD: 04/15/2017 21:36 JOB #: [id number] MEDICAL IMAGING REPORT Page 1 of 1 COPY
--- NOTE | ~2017-04-15 | MR122 ---
[facility] A Service of [facility] & [facility] RADIOLOGY TEXT RESULTS PATIENT: ORSELINE PADILLA LOCATION: A 217-01 : 35 UNIT #: [id number] AGE: [address]: Robb Cohn MD SEX: M ORDER DR: [id number] [facility] [address] [place], [place] [address] [id number] I MR#: [id number] Acc #: [id number] NAME: ROSELINE PADILLA : 1935 SEX: M STUDY DATE/TIME: 04/16/2017 14:21 UNIT: C3A PCU ROOM: [facility] STUDY DESCRIPTION: MR MRA Head Wo Contrast Attending Physician: Robb Cohn M.D. Ordering Physician: Sylvain Landeros M.D. Primary Care Physician: Dillon Lucas M.D. MRI CENTER REPORT This report is preliminary unless electronic signature is present. EXAM MR angiogram of the head without contrast dated 04/16/2017. COMPARISON MRA neck without contrast dated 04/16/2017. CT head without contrast dated 04/15/2017. MRI brain without contrast is to be obtained subsequently. HISTORY Left-sided weakness since Thursday (04/15/2017). Patient fell that day at home with injury to the left leg. Patient was dizzy and confused after fall. FINDINGS Source and 3-D reconstruction MIP images of the [place] of [place] was obtained without contrast. The left internal carotid artery appears to be slightly smaller in caliber, particularly in the left petrous and portions of the left cavernous ICA. Bilateral anterior and middle cerebral arteries demonstrate mild irregularity in the lateral aspect of the M1 segment of the left MCA after the takeoff of the left anterior temporal artery branch, and near the left MCA trifurcation. No distal flow compromise is seen. There are a slightly lesser number of right sylvian and hemispheric branches when compared to the left, but the right M1 segment is relatively within normal limits. There is also mild to moderate narrowing noted at the proximal portion of the A1 segment of the left GARY. Right anterior cerebral artery and anterior communicating artery are unremarkable. The bilateral posterior cerebral arteries demonstrate mild decrease in signal along the course of bilateral posterior cerebral arteries involving 2 short segments. There is no complete occlusion of the vessel with flow extending towards bilateral P4 segments respectively. Mild irregularity is also noted along the course of the basilar artery with likely mild narrowing in the mid third segment. Left vertebral artery appears to terminate in a left PICA without any significant flow [facility] A Service of [facility] & [facility] RADIOLOGY TEXT RESULTS PATIENT: ROSELINE PADILLA LOCATION: [facility] 217- : 35 UNIT #: [id number] AGE: [address]: Robb Cohn MD SEX: M ORDER DR: extending distally towards the left vertebrobasilar junction. No aneurysm or AVM is seen. IMPRESSION 1. There is mild decrease in caliber of the left internal carotid artery intracranially when compared to the right. It could be related to mild atherosclerotic disease or mild hypoplasia without any focal superimposed severe stenosis. 2. Mild irregularities are noted in bilateral posterior cerebral arteries involving 2 short segments on each side, mid third of the basilar artery, lateral aspect of the M1 segment of the left middle cerebral artery close to the trifurcation. There is also mild to moderate narrowing noted at the proximal portion of the A1 segment of the left GARY. 3. Left vertebral artery is very small and it appears to terminate in a left PICA without any contribution to the basilar artery. 4. The right sylvian hemispheric branches of the right middle cerebral artery appear to be asymmetrically lesser when compared to the right without any obvious proximal significant stenosis of the M1 segment. 5. There is atherosclerotic narrowing is seen involving multiple vessels of the anterior and posterior circulation. There are, however no aneurysms, or AVM. Dictated by... Art Peralta M.D. THIS IS AN ELECTRONICALLY VERIFIED REPORT Art Peralta M.D. at 04/22/2017 11:44 AM CPR/tmw TD: 04/16/2017 16:47 JOB #: [id number] MRI CENTER REPORT Page 1 of 1 COPY
[2017-04-15 14:53] LABS: BASOPHIL% 0.4 % (0-2.5); EOSINOPHIL# 0.4 X10e3 (0-0.7); EOSINOPHIL% 4.3 % (0.0-7.0); HEMATOCRIT 32.7 % (38.0-50.0); HEMOGLOBIN 10.7 gm/dL (13.0-16.0); LYMPHOCYTE# 1.8 X10e3 (1.0-3.5); LYMPHOCYTE% 16.9 % (17.0-45.0); MEAN CELL VOLUME 87.1 FL (83-96); MEAN CORPUSCULAR HEMOGLOBIN 28.6 PG (28-34); MEAN CORPUSCULAR HGB CONC 32.8 g/dL (30-36); MEAN PLATELET VOLUME 6.5 FL (6.5-11.5); MONOCYTE# 0.9 X10e3 (0-1.0); MONOCYTE% 8.5 % (3.0-12.0); NEUTROPHIL# 7.3 X10e3 (1.5-7.1); NEUTROPHIL% 69.9 % (40-75); PLATELET COUNT 253 X10e3 (140-420); RED BLOOD COUNT 3.75 X10e (3.90-5.60); RED CELL DISTRIBUTION WIDTH 16.1 % (11.0-15.5); WHITE BLOOD COUNT 10.4 X10e3 (4.0-10.5)
[2017-04-15 14:56] LABS: DIFF IND NO
[2017-04-15 15:27] LABS: ALBUMIN SERUM 3.6 g/dL (3.5-5.0); BILIRUBIN, DIRECT 0.1 mg/dL (0.0-0.2); BILIRUBIN,INDIRECT 0.7 mg/dL (0.0-0.9); BILIRUBIN,TOTAL 0.8 mg/dL (0.2-2.0); BUN/CREATININE RATIO 17.09; CALCIUM SERUM 9.1 mg/dL (8.4-10.2); CREATININE SERUM 3.1 mg/dL (0.6-1.4); GLOM FILT RATE Estimated 17.9 mL/min (>60); POTASSIUM 4.4 mmol/L (3.5-5.1); PROTEIN TOTAL SERUM 7.4 g/dL (6.0-8.3)
[2017-04-15 15:32] LABS: POC - CKMB 1.8 ng/mL (0.0-7.9); POC - TROPONIN <0.05 ng/mL (<=0.05)
[2017-04-15 17:42] LABS: POC - CKMB 1.5 ng/mL (0.0-7.9); POC - TROPONIN <0.05 ng/mL (<=0.05)
[2017-04-15 17:44] LABS: URINE SOURCE CLEAN CATCH
[2017-04-15 17:50] LABS: URINE APPEARANCE CLEAR; URINE BILIRUBIN NEG (NEG); URINE BLOOD NEG (NEG); URINE COLOR YELLOW; URINE GLUCOSE NEG (NEG); URINE KETONE NEG (NEG); URINE LEUKOCYTE ESTERASE NEG (NEG); URINE NITRATE NEG (NEG); URINE PROTEIN 1+ (NEG); URINE SPECIFIC GRAVITY 1.011 (1.003-1.035)
[2017-04-15 17:52] LABS: U HYALINE CASTS AUWI 0-2 /[LPF]; URBCS1 AUWI 0-2 /[HPF] (0-2); URINE BACTERIA AUWI NEG (NEGATIVE); URINE SQUAMOUS EPITHELIAL CELL NONE SEEN /[HPF]; UWBCS1 AUWI 0-2 (0-5)
[2017-04-15 17:56] LABS: CULTURE INDICATED? NO
[2017-04-15] MEDS ORDERED: POTASSIUM CHLO10 MEQ DOB (18:49)
[2017-04-15] MEDS ORDERED: LEVOTHYROXINE25 MC1 PO (18:49)
[2017-04-15] MEDS ORDERED: FUROSEMIDE40 MG PO (18:51)
[2017-04-15] MEDS ORDERED: CARVEDILOL25 MG PO (18:52)
[2017-04-15] MEDS ORDERED: BAYER ASPIRIN325 M1 PO (18:52)
[2017-04-15] MEDS ORDERED: LIPITOR40 MG PO (18:52)
[2017-04-15] MEDS ORDERED: (NONE)1 CA1 PO (18:53)
[2017-04-15] MEDS ORDERED: HYDRALAZINE HCL25 MG PO (18:53)
[2017-04-15] MEDS ORDERED: ISOSORBIDE MONO60 M1 PO (18:54)
[2017-04-15] MEDS ORDERED: NITROGLYGERIN0.4 MG SL (18:54)
[2017-04-15 21:15] LABS: FOLATE (FOLIC ACID) 7.6 ng/mL (>5.8)
[2017-04-15 23:57] LABS: CK TOTAL 29 IU/L (36-174)
[2017-04-16 00:24] LABS: CREATININE,RANDOM URINE 56 mg/dL; SODIUM URINE RANDOM 67 mmol/L; TOTAL PROTEIN,RANDOM URINE 47 mg/dl (<10)
[2017-04-16 05:29] LABS: BASOPHIL# 0.1 X10e3 (0-0.3); BASOPHIL% 0.6 % (0-2.5); EOSINOPHIL# 0.5 X10e3 (0-0.7); EOSINOPHIL% 4.5 % (0.0-7.0); HEMATOCRIT 31.7 % (38.0-50.0); HEMOGLOBIN 10.5 gm/dL (13.0-16.0); LYMPHOCYTE% 16.7 % (17.0-45.0); MEAN CELL VOLUME 86.1 FL (83-96); MEAN CORPUSCULAR HEMOGLOBIN 28.6 PG (28-34); MEAN CORPUSCULAR HGB CONC 33.2 g/dL (30-36); MEAN PLATELET VOLUME 6.4 FL (6.5-11.5); MONOCYTE% 8.4 % (3.0-12.0); NEUTROPHIL# 8.4 X10e3 (1.5-7.1); NEUTROPHIL% 69.8 % (40-75); PLATELET COUNT 231 X10e3 (140-420); RED BLOOD COUNT 3.68 X10e (3.90-5.60); RED CELL DISTRIBUTION WIDTH 16.2 % (11.0-15.5)
[2017-04-16 05:46] LABS: DIFF IND NO
[2017-04-16 06:05] LABS: CK TOTAL 29 IU/L (36-174)
[2017-04-16 06:12] LABS: ALBUMIN SERUM 3.5 g/dL (3.5-5.0); BUN/CREATININE RATIO 18.27; CALCIUM SERUM 9.2 mg/dL (8.4-10.2); CREATININE SERUM 2.9 mg/dL (0.6-1.4); GLOM FILT RATE Estimated 19.4 mL/min (>60); MAGNESIUM 2.2 mg/dL (1.6-3.0); PHOSPHOROUS 3.7 mg/dL (2.5-4.6); POTASSIUM 3.9 mmol/L (3.5-5.1); PROTEIN TOTAL SERUM 7.3 g/dL (6.0-8.3)
[2017-04-16 07:17] LABS: CREATININE,RANDOM URINE 91 mg/dL; SODIUM URINE RANDOM 47 mmol/L; TOTAL PROTEIN,RANDOM URINE 93 mg/dl (<10)
[2017-04-17 06:16] LABS: HEMATOCRIT 28.8 % (38.0-50.0); HEMOGLOBIN 9.6 gm/dL (13.0-16.0); MEAN CELL VOLUME 86.3 FL (83-96); MEAN CORPUSCULAR HEMOGLOBIN 28.7 PG (28-34); MEAN CORPUSCULAR HGB CONC 33.2 g/dL (30-36); MEAN PLATELET VOLUME 6.6 FL (6.5-11.5); RED BLOOD COUNT 3.34 X10e (3.90-5.60); RED CELL DISTRIBUTION WIDTH 16.3 % (11.0-15.5); WHITE BLOOD COUNT 12.3 X10e3 (4.0-10.5)
[2017-04-17 07:25] LABS: BUN/CREATININE RATIO 21.42; CALCIUM SERUM 8.7 mg/dL (8.4-10.2); CREATININE SERUM 2.8 mg/dL (0.6-1.4); GLOM FILT RATE Estimated 20.2 mL/min (>60); MAGNESIUM 2.2 mg/dL (1.6-3.0); POTASSIUM 3.8 mmol/L (3.5-5.1)
[2017-04-18 06:06] LABS: BASOPHIL% 0.4 % (0-2.5); EOSINOPHIL# 0.4 X10e3 (0-0.7); EOSINOPHIL% 3.8 % (0.0-7.0); HEMATOCRIT 29.1 % (38.0-50.0); HEMOGLOBIN 9.7 gm/dL (13.0-16.0); LYMPHOCYTE# 2.1 X10e3 (1.0-3.5); LYMPHOCYTE% 22.2 % (17.0-45.0); MEAN CELL VOLUME 86.9 FL (83-96); MEAN CORPUSCULAR HGB CONC 33.4 g/dL (30-36); MEAN PLATELET VOLUME 6.5 FL (6.5-11.5); MONOCYTE# 0.9 X10e3 (0-1.0); NEUTROPHIL# 6.1 X10e3 (1.5-7.1); NEUTROPHIL% 64.6 % (40-75); PLATELET COUNT 221 X10e3 (140-420); RED BLOOD COUNT 3.35 X10e (3.90-5.60); RED CELL DISTRIBUTION WIDTH 16.1 % (11.0-15.5); WHITE BLOOD COUNT 9.5 X10e3 (4.0-10.5)
[2017-04-18 06:30] LABS: DIFF IND NO
[2017-04-18 07:01] LABS: CHOLESTEROL 117 mg/dL (0-200); HDL CHOLESTEROL 35 mg/dL (29-75); LDL CHOLESTEROL 70 mg/dL (-130); LDL/HDL RATIO 2 RATIO (0-4); TRIGLYCERIDES 60 mg/dL (10-160)
[2017-04-19 05:47] LABS: BUN/CREATININE RATIO 19.62; CALCIUM SERUM 8.8 mg/dL (8.4-10.2); CREATININE SERUM 2.7 mg/dL (0.6-1.4); GLOM FILT RATE Estimated 21.1 mL/min (>60); POTASSIUM 4.1 mmol/L (3.5-5.1)
[2017-04-19 06:41] LABS: IRON SERUM 26 ug/dL (45-182); TOTAL IRON BINDING CAPACITY 202 ug/dL (252-460); TRANSFERRIN 145 mg/dL (180-329); TRANSFERRIN SATURATION 13 % (20-50)
== END 2017-04-20 19:01 | DRG 682 ==
LOC: CED 13:58 → C3A PCU 19:19 → CEDOF 19:19 → CED 19:35 → CEDOF 19:35 → CED 19:46 → CEDOF 19:46 → C3A PCU 22:54 → CEDOF 22:54 → C3A PCU 04-16 08:30 → C2A 04-18 23:50
PROVIDERS: Emergency Medicine; Family Medicine; Internal Medicine; Internal Medicine Medical Oncology; Internal Medicine Nephrology; Nurse Practitioner; Psychiatry & Neurology Neurology
DX: N17.9 Acute kidney failure, unspecified (principal); G92 Toxic encephalopathy; E11.22 Type 2 diabetes mellitus with diabetic chronic kidney disease; I13.0 Hypertensive heart and chronic kidney disease with heart failure and stage 1 through stage 4 chronic kidney disease, or unspecified chronic kidney disease; E11.65 Type 2 diabetes mellitus with hyperglycemia; I50.22 Chronic systolic (congestive) heart failure; S83.92XA Sprain of unspecified site of left knee, initial encounter; E03.9 Hypothyroidism, unspecified; D63.1 Anemia in chronic kidney disease; W19.XXXA Unspecified fall, initial encounter; R33.9 Retention of urine, unspecified; N18.4 Chronic kidney disease, stage 4 (severe); D72.829 Elevated white blood cell count, unspecified; I25.10 Atherosclerotic heart disease of native coronary artery without angina pectoris; I35.1 Nonrheumatic aortic (valve) insufficiency; E78.5 Hyperlipidemia, unspecified; D50.9 Iron deficiency anemia, unspecified; I25.2 Old myocardial infarction; R80.9 Proteinuria, unspecified; Z66 Do not resuscitate; Z79.82 Long term (current) use of aspirin
CPT/HCPCS: 36415; 70450; 70544; 70547; 70551; 71010; 73502; 73562; 73590; 73610; 73700; 80048; 80053; 80061; 80076; 81003; 82550; 82553; 82570; 82607; 82728; 82746; 82947; 83036; 83540; 83550; 83735; 83880; 84100; 84156; 84300; 84443; 84484; 85025; 85027; 93005; 97110; 97116; 97162; 97166; 97530; 97535; 99285; G8978-GP; G8979-GP; G8987-GO; G8988-GO; J1650; J1815